=== PATIENT | female | born 2005 | race Caucasian/White ===

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

== ENCOUNTER → 2024-02-27 | Outpatient (CLI) | payer OTHER, SELFPAY ==
--- NOTE | 2024-02-27 12:50 | US_ITS ---
STUDY: RENAL ULTRASOUND - COMPLETE REASON FOR EXAM: Female, 18 years old. Flank pain and fever TECHNIQUE: Ultrasound evaluation of the kidneys was performed with real-time and static walters-scale imaging. COMPARISON: None. FINDINGS: RIGHT KIDNEY: Normal location of the right kidney, which is normal in size. The right kidney measures 9.4 x 5.4 x 4.2 cm. There is a normal cortex of the right kidney. The renal cortex measures 1.0 cm. There is no right renal mass or cyst. There are no right renal calculi. There is mild hydronephrosis of the right kidney. DISTAL RIGHT URETER: There is non-visualization of the distal right ureter. There is no demonstrated right ureterovesical junction calculus. There is a visualized right ureteral jet. LEFT KIDNEY: Normal location of the left kidney, which is normal in size. The left kidney measures 10.5 x 5.2 x 5.4 cm. There is a normal cortex of the left kidney. The renal cortex measures 1.1 cm. There is no left renal mass or cyst. There are no left renal calculi. There is mild hydronephrosis of the left kidney. DISTAL LEFT URETER: There is non-visualization of the distal left ureter. There is no demonstrated left ureterovesical junction calculus. There is a visualized left ureteral jet. AORTA: There is no elongation or tortuosity of the abdominal aorta. I.V.C.: The IVC is patent. BLADDER: The distended urinary bladder has a volume of 652.2 ml. The empty urinary bladder has a volume of 437.3 ml. There is a normal wall thickness of the distended urinary bladder. There is no demonstrated mass within the urinary bladder. There are no demonstrated bladder calculi. US/Kidney and Bladder IMPRESSION: Mild bilateral hydronephrosis likely due to bladder outlet issues as the patient shows a significant post void residual of more than 400 mL. This places the patient at risk for urinary reflux and UTIs. Although the bladder show significant post void residual there is no abnormal thickening or pericystic inflammation noted on this study. Electronically Signed: Jonas Daley MD at 11:16 EST ,
== END | disposition home or self-care (01) ==
PROVIDERS: PCP Pediatrics; Referring Provider Urology; Visit Provider Urology
DX: N39.0 Urinary tract infection, site not specified (principal)
CPT/HCPCS: 76770